=== PATIENT | female | born 1995 | race Caucasian/White ===

== ENCOUNTER → 2019-11-28 10:07 | Outpatient (BNVA) | payer OTHER, SELFPAY | PROVIDERS: Visit Provider Family Medicine | DX: Z11.59 Encounter for screening for other viral diseases (principal); Z20.828 Contact with and (suspected) exposure to other viral communicable diseases | CPT/HCPCS: 87635 ==

== ENCOUNTER → 2020-05-12 09:20 | Outpatient (BNVA) | payer OTHER, SELFPAY | PROVIDERS: Visit Provider Obstetrics & Gynecology | DX: N93.9 Abnormal uterine and vaginal bleeding, unspecified (principal); Z31.69 Encounter for other general counseling and advice on procreation; Z86.2 Personal history of diseases of the blood and blood-forming organs and certain disorders involving the immune mechanism | CPT/HCPCS: 85027 ==

== ENCOUNTER → 2021-02-18 09:39 | Outpatient (BNVA) | payer OTHER, SELFPAY | PROVIDERS: Visit Provider Nurse Practitioner Women's Health | DX: N92.6 Irregular menstruation, unspecified (principal) | CPT/HCPCS: 81025 ==

== ENCOUNTER → 2021-03-04 08:23 | Outpatient (BNVA) | payer OTHER, SELFPAY | PROVIDERS: Visit Provider Obstetrics & Gynecology | DX: O26.899 Other specified pregnancy related conditions, unspecified trimester (principal); R10.9 Unspecified abdominal pain | CPT/HCPCS: 84315; 87086 ==

== ENCOUNTER → 2021-03-11 14:00 | Outpatient (BNVA) | payer OTHER, SELFPAY | PROVIDERS: Visit Provider Obstetrics & Gynecology | DX: Z34.90 Encounter for supervision of normal pregnancy, unspecified, unspecified trimester (principal) | CPT/HCPCS: 80307; 84315; 85027; 86592; 86762; 86803; 86850; 86900; 87086; 87340 ==

== ENCOUNTER → 2021-04-06 09:39 | Outpatient (BNVA) | payer OTHER, SELFPAY | PROVIDERS: Visit Provider Obstetrics & Gynecology | DX: O09.90 Supervision of high risk pregnancy, unspecified, unspecified trimester (principal); O09.299 Supervision of pregnancy with other poor reproductive or obstetric history, unspecified trimester; O99.210 Obesity complicating pregnancy, unspecified trimester | CPT/HCPCS: 84315; 87491; 87591 ==

== ENCOUNTER → 2021-07-14 10:06 | Outpatient (BNVA) | payer OTHER, SELFPAY | PROVIDERS: PCP Nurse Practitioner Family; Visit Provider Obstetrics & Gynecology | DX: O09.90 Supervision of high risk pregnancy, unspecified, unspecified trimester (principal); Z3A.00 Weeks of gestation of pregnancy not specified | CPT/HCPCS: 82950; 84315; 85027 ==

== ENCOUNTER → 2021-07-21 08:23 | Outpatient (BNVA) | payer OTHER, SELFPAY | PROVIDERS: PCP Nurse Practitioner Family; Visit Provider Obstetrics & Gynecology | DX: O09.90 Supervision of high risk pregnancy, unspecified, unspecified trimester (principal); Z3A.00 Weeks of gestation of pregnancy not specified | CPT/HCPCS: 82951; 82952; 84315 ==

== ENCOUNTER 2021-08-19 09:30 | Outpatient (CLI) | payer OTHER, SELFPAY ==
[2021-08-19 09:38] VITALS: RESP 16
[2021-08-19 09:40] VITALS: BP 133/82; PULSE 83
[2021-08-19 09:44] VITALS: BMI 37.9
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
[2021-08-19 09:55] VITALS: BP 139/58; PULSE 82
[2021-08-19 10:10] VITALS: BP 123/70; PULSE 82
== END 2021-08-19 10:30 | disposition home or self-care (01) ==
LOC: OPOB 09:30 → OBGYN 09:31
PROVIDERS: PCP Nurse Practitioner Family; Visit Provider Obstetrics & Gynecology
DX: O26.899 Other specified pregnancy related conditions, unspecified trimester (principal); Z3A.00 Weeks of gestation of pregnancy not specified
CPT/HCPCS: 59025; 76819

== ENCOUNTER 2021-09-08 08:54 | Outpatient (CLI) | payer OTHER, SELFPAY ==
--- NOTE | 2021-09-08 09:15 | US_ITS ---
WS: [id number] OBSTETRICAL ULTRASOUND, LIMITED. HISTORY: O99.210 - Obesity complicating , growth and SABINE. COMPARISON: 08/19/2021, 02/20/2021 Single intrauterine gestation in Cephalic presentation. Cervix is difficult to visualize. Obscured by the head and late gestation. Cervical length is approximately 4.0 cm. Normal amount of amniotic fluid surrounds the fetus. Placenta: Posterior and to the RIGHT. No previa or abruption. Placenta grade 1 Heart: 164 BPM. measurements: BPD = 8.9 cm = 36w1d HC = 32.0 cm = 36w1d AC = 32.0 cm = 35w6d FL = 7.0 cm = 36w0d EFW: 2818 g. 65th Biometry is internally concordant. SABINE: 14.0 cm at the 50th percentile. AGA by ultrasound: 36w0d BLAINE by ultrasound: 10/06/2021
--- NOTE | 2021-09-08 13:36 | US_ITS ---
WS: [id number] OBSTETRICAL ULTRASOUND, LIMITED. HISTORY: O99.210 - Obesity complicating , growth and SABINE. COMPARISON: 08/19/2021, 02/20/2021 Single intrauterine gestation in Cephalic presentation. Cervix is difficult to visualize. Obscured by the head and late gestation. Cervical length is approximately 4.0 cm. Normal amount of amniotic fluid surrounds the fetus. Placenta: Posterior and to the RIGHT. No previa or abruption. Placenta grade 1 Heart: 164 BPM. measurements: BPD = 8.9 cm = 36w1d HC = 32.0 cm = 36w1d AC = 32.0 cm = 35w6d FL = 7.0 cm = 36w0d EFW: 2818 g. 65th Biometry is internally concordant. SABINE: 14.0 cm at the 50th percentile. AGA by ultrasound: 36w0d BLAINE by ultrasound: 10/06/2021 US/US OB limited [id number] IMPRESSION: 1. Single intrauterine gestation of 36w0d with an BLAINE of 10/06/2021. Appropria te growth since the first trimester ultrasound. No growth asymmetry. 2. Amniotic fluid index: 14.0 cm which is near the 50th percentile.
== END 2021-09-08 08:55 | disposition home or self-care (01) ==
LOC: RAD 08:55
PROVIDERS: PCP Nurse Practitioner Family; Visit Provider Obstetrics & Gynecology
DX: O99.210 Obesity complicating pregnancy, unspecified trimester (principal)
CPT/HCPCS: 76805; 76815; 84315; 87081

== ENCOUNTER 2021-09-14 17:18 | Outpatient (CLI) | payer OTHER, SELFPAY ==
[2021-09-14] VITALS (22 sets, daily range): BP systolic 100–135; BP diastolic 56–77; PULSE 90–125; RESP 16–18; TEMP 36.7; O2SAT 98–99; BMI 38.9
[2021-09-14 19:35] LABS: Actim Prom Negative
== END 2021-09-14 20:05 | disposition home or self-care (01) ==
LOC: OPOB 17:22 → OBGYN 17:22
PROVIDERS: PCP Nurse Practitioner Family; Visit Provider Obstetrics & Gynecology
DX: O26.899 Other specified pregnancy related conditions, unspecified trimester (principal); Z3A.00 Weeks of gestation of pregnancy not specified; N89.8 Other specified noninflammatory disorders of vagina
CPT/HCPCS: 59025; 83986; 84112; 99211

== ENCOUNTER 2021-09-29 06:11 | Inpatient (IN) | payer OTHER, SELFPAY ==
[2021-09-29] VITALS (71 sets, daily range): BP systolic 96–175; BP diastolic 53–77; PULSE 80–116; RESP 16; TEMP 36.6–36.8; O2SAT 97–100; BMI 38.9
[2021-09-29] MEDS: dextrose 5%-lactated ringers 1,000 ML 999 ML IV (06:42)
[2021-09-29 06:46] LABS: Basophils % 0.3 %; Eosinophils # 0.1 10^3/uL (0.0-0.8); Eosinophils % 1.9 %; Hematocrit 32.1 % (37.0-47.0); Hemoglobin 10.4 g/dL (11.5-15.3); Lymphocytes # 1.5 10^3/uL (0.8-4.8); Lymphocytes % 21.7 %; Mean Corpuscular HGB Conc 32.4 g/dL (30.0-36.0); Mean Corpuscular Hemoglobin 28.2 pg (28.0-34.0); Mean Platelet Volume 11.9 fL (7.4-10.4); Monocytes # 0.4 10^3/uL (0.2-0.9); Monocytes % 5.3 %; Neutrophils # 4.77 10^3/uL (1.8-7.7); Neutrophils % 70.4 %; Nucleated Red Blood Cells % 0 %; Platelet Count 136 10^3/cmm (130-400); Red Blood Count 3.69 10^6/uL (4.1-5.3); Red Cell Distribution Width 13.6 % (12.1-15.1); White Blood Count 6.8 10^3/uL (4.0-10.0)
[2021-09-29] MEDS: oxytocin 30 UNIT/500 ML BAG IV (07:21)
--- NOTE | 2021-09-29 09:15 | P.HPUD_ITS ---
Labor & Delivery H&P Update Date of Procedure: September 29, 2021 Date H&P Performed: 09/28/21 H&P update information: I have reviewed H&P completed within last 30 days, I have examined patient prior to procedure, No changes to prior documentation and H&P is in [facility] [place] on date indicated Admission Diagnosis: Preop diagnosis: IUP
[2021-09-29] MEDS: lactated ringers 1,000 ML 999 ML IV ×2 (12:02→12:04)
--- NOTE | 2021-09-29 12:39 | ANES.PREANE2 ---
Pre-Anesthetic Assessment Height/Weight: Height 1.6 m Weight 99.79 kg Temp Pulse Resp BP Pulse Ox O2 Del Method 98.2 F 102 H 16 113/61 99 09/29/21 07:28 09/29/21 12:29 09/29/21 06:27 09/29/21 12:29 09/29/21 12:02 09/29/21 08:00 Preop Diagnosis: IUP epidural Familial anesthetic complications: None Was Beta Milagros taken within 24 hours: N/A Was Clonidine taken within 24 hours: N/A Social No alcohol and No tobacco Exam alert, oriented x 3, clear to auscultation bilaterally and regular rate & rhythm Airway Mallampati: Class II Dentition: full Metabolic Morbid Obesity Anesthetic Plan ASA status: 2 Other: epidural Risk of > 500 ml blood loss (7ml/kg in children): No Medications/Allergies Home Medications Medication Instructions Recorded Confirmed Last Taken Type prenat.vits,estrada,qpb-[id number] 1 tab PO DAILY 02/18/21 09/29/21 09/28/21 History ferrous sulfate 325 mg (65 mg 325 mg PO DAILY #90 tabs 07/27/21 09/29/21 09/28/21 Rx iron) tablet,delayed release Allergies Allergy/AdvReac Type Severity Reaction Status Date / Time No Known Allergies Allergy Verified 09/29/21 06:51 Current Medications Generic Name Dose Route Start Last Admin Trade Name Freq PRN Reason Stop Dose Admin Oxytocin 30 unit in 500 mls @ 1 mls/hr 09/29/21 06:30 09/29/21 10:00 Pitocin IV 19 milliunit/min .Q24H JOJO 19 mls/hr Titration Protocol 1 MILLIUNIT/MIN Dextrose/Lactated Ringer's 1,000 mls @ 125 mls/hr 09/29/21 06:30 09/29/21 06:42 Dextrose 5%-Lactated Ringers IV 999 mls/hr .Q8H JOJO Administration Lactated Ringer's 1,000 mls @ 999 mls/hr 09/29/21 10:52 09/29/21 12:04 Lactated Ringers IV 999 mls/hr .Q1H1M PRN Administration See label comments PFSH Anesthesia Medical History No pertinent past medical history Denies diabetes, asthma, hypertension, seizures, DVT/PE PCP: RNA Clements Surgical History No pertinent past surgical history Family History Grandmother Stroke maternal Diabetes maternal and paternal Heart disease Maternal Uterine cancer Paternal---dx age 80 Mother Thyroid disease Denies family history of Colon cancer Ovarian cancer Hypercholesteremia Breast cancer Hypertension Female Reproductive History : 2 Data Anesthesia : 09/29/21 06:31 Short CBC 09/29/21 Range/Units 06:31 WBC 6.8 (4.0-10.0) 10^3/uL Hgb 10.4 L (11.5-15.3) g/dL Hct 32.1 L (37.0-47.0) % MCV 87.0 (81-99) fl Plt Count 136 (130-400) 10^3/cmm Neut % (Auto) 70.4 % Neut # (Auto) 4.77 (1.8-7.7) 10^3/uL Blood Bank 09/29/21 06:31 Blood Type O Positive Rho(D) Type Positive Antibody Screen Negative Cardiac Studies: No Data to Display
--- NOTE | 2021-09-29 12:40 | ANES.PROC ---
Anesthesia Procedures Procedure/Date: 09/29/21 Epidural: Time Out Performed: Yes Consents Signed: Procedure Consent Consent: requested by attending/covering physician, from patient, risks and benefits reviewed and patient agrees to proceed Lumbar Level: L3-L4 Epidural position: sitting Epidural procedure: sterile prep of area, 1% lidocaine to numb the area, 18 g needle, negative for paresthesia passed, neg for paresthesia, test dose given, 1.5% xylocaine 1:200k epi (5 cc (divided dose)), 0.2% Ropivacaine bolus ml (5), placed PCEA, no systemic response, sterile dressing applied, L.U.D. no apparent complications and 0.2% Ropiavacaine @ mls/hr (13) Additional Comments: HARMONY at 5.5 cm. threaded to 12 cm, Patient reported pain free contraction following bolus.
[2021-09-29] MEDS: dextrose 5%-lactated ringers 1,000 ML 125 ML IV (17:00)
--- NOTE | 2021-09-29 18:20 | P.PCNOB_ITS ---
Delivery Note: Date of delivery: September 29, 2021 - PRE-DELIVERY DIAGNOSIS: 26 yr at 39w0d GBS negative Anemia on iron Elective induction POST-DELIVERY DIAGNOSIS: Vaginal delivery on 09/29/2021 PROCEDURE: Vaginal delivery on 09/29/2021 ANESTHESIA: Epidural anesthesia DELIVERING PHYSICIAN: Meagan Kent FACOG PRE-DELIVERY COURSE: Ms. Triana is a 26-year-old 2 para 1-0-0-1 at 39 weeks and 0 days who presented to labor and delivery at 6 AM on 09/29/2021 for elective induction of labor. On evaluation her cervix was noted to be 3 cm 60% and -3 station cephalic. tracing was category 1 and she had no contractions. GBS was noted to be negative. Vital signs are within normal limits. Induction was started with Pitocin titrated to a maximum of 20 mIU. With this she started to get a little uncomfortable and at age 11:15 AM she was noted to be 4 cm 60% and -3 station. She requested an epidural which was placed and she was comfortable. Artificial rupture of membranes was performed at 2 PM with clear fluid at which point she was 4 to 5 cm 60% and -2 station. She made cervical change after this and was fully dilated at 5:39 PM and was feeling a lot of pressure and was set up in lithotomy position ready to push. tracing was overall reassuring with occasional variables and mainly early decelerations. DELIVERY NOTE: She was set up in lithotomy position and was pushing effectively. She was noted to be +3 station and continued pushing well. The head delivered in BETZY position, no nuchal cord was present. The shoulders and rest of the body followed with her next push. The baby's mouth and nose were suctioned and the baby was placed on the mother's belly. Once cord pulsations stopped the cord was clamped and cut. The placenta delivered spontaneously intact with membranes and was discarded. The fundus was noted to be firm and well contracted. Exam showed no sign of uterine inversion. The vagina and cervix were inspected and no cervical or sulcal lacerations were noted. The perineum was noted to be intact Baby boy, Jeffrey Davis born at 5:58 PM with 8/9, weighing 6 pounds 13 ounces, 3095 long. Placenta was delivered spontaneously intact with membranes. Cotyledons were intact , centrally inserted umbilical cord with 3 vessels noted. Estimated blood loss 250 mL. Complications-none, both baby and mother were left to recover in a stable condition. This documentation was created by [employer] professor of environmental studies software (known for inherent professor of environmental studies error). Every effort was made to assure accuracy of professor of environmental studies. Any obvious errors or omissions should be clarified with the author of the document. History History History 2 Term 1 0 Miscarriages/Ectopic 0 Living Children 1 Coding Level of Care Code Acute Sanitation Director for [employer] Madiha
[2021-09-29] MEDS: ibuprofen 800 mg tablet PO (21:13)
[2021-09-29] MEDS: benzocaine-menthol 78 gm Canister 1 SPRAY TOPICAL (22:03)
[2021-09-29] MEDS: lanolin oint 7 gm 1 APPLIC TOPICAL (22:03)
[2021-09-29] MEDS: HYDROcodone-acetaminophen 5-325 mg Tablet PO (23:42)
[2021-09-30 00:26] VITALS: BP 113/75; PULSE 73; TEMP 36.7; O2SAT 98
[2021-09-30 02:45] VITALS: BP 94/60; PULSE 77; RESP 16; TEMP 36.6; O2SAT 98
[2021-09-30 04:30] VITALS: BP 97/52; PULSE 68; TEMP 36.5; O2SAT 99
[2021-09-30 06:30] LABS: Hematocrit 31.3 % (37.0-47.0); Hemoglobin 10.1 g/dL (11.5-15.3); Mean Corpuscular HGB Conc 32.3 g/dL (30.0-36.0); Mean Corpuscular Hemoglobin 28.2 pg (28.0-34.0); Mean Corpuscular Volume 87.4 fl (81-99); Mean Platelet Volume 11.9 fL (7.4-10.4); Platelet Count 155 10^3/cmm (130-400); Red Blood Count 3.58 10^6/uL (4.1-5.3); Red Cell Distribution Width 13.6 % (12.1-15.1); White Blood Count 9.4 10^3/uL (4.0-10.0)
--- NOTE | 2021-09-30 07:24 | ANE.PACU2 ---
Inpatient post-anesthesia follow up: Airway intact: Yes Vital signs: Temperature 97.7 F Pulse Rate 68 Respiratory Rate 16 Blood Pressure 97/52 Pulse Oximetry 99 Oxygen Delivery Me thod Room Air Oxygen Flow Rate Fraction of Inspir ed Oxygen Hydration adequate: Yes Nausea and vomiting: No Pain level: 2 Mental status: Baseline
[2021-09-30] MEDS: ibuprofen 800 mg tablet PO ×2 (08:21→14:10)
[2021-09-30] MEDS: docusate sodium 100 mg Capsule PO (08:21)
[2021-09-30] MEDS: prenatal vitamin Capsule 1 CAP PO (08:21)
[2021-09-30 08:43] VITALS: BP 111/75; PULSE 78; RESP 15; TEMP 36.7; O2SAT 97
--- NOTE | 2021-09-30 09:14 | P.DS_ITS ---
Discharge Providers VIDEO TAPE DUPLICATOR Date of Admission: 09/29/21 06:11 Date of Discharge: 09/30/21 Attending Provider at Admission: Meagan Calderon MD Attending Provider at Discharge: Meagan Calderon MD PRE-DELIVERY DIAGNOSIS: 26 yr at 39w0d GBS negative Anemia on iron Elective induction POST-DELIVERY DIAGNOSIS: Vaginal delivery on 09/29/2021 PROCEDURE: Vaginal delivery on 09/29/2021 ANESTHESIA: Epidural anesthesia DELIVERING PHYSICIAN: Meagan Kent FACOG PRE-DELIVERY COURSE: Ms. Triana is a 26-year-old 2 para 1-0-0-1 at 39 weeks and 0 days who presented to labor and delivery at 6 AM on 09/29/2021 for elective induction of labor. On evaluation her cervix was noted to be 3 cm 60% and -3 station cephalic. tracing was category 1 and she had no contractions. GBS was noted to be negative. Vital signs are within normal limits. Induction was started with Pitocin titrated to a maximum of 20 mIU. With this she started to get a little uncomfortable and at age 11:15 AM she was noted to be 4 cm 60% and -3 station. She requested an epidural which was placed and she was comfortable. Artificial rupture of membranes was performed at 2 PM with clear fluid at which point she was 4 to 5 cm 60% and -2 station. She made cervical change after this and was fully dilated at 5:39 PM and was feeling a lot of pressure and was set up in lithotomy position ready to push. tracing was overall reassuring with occasional variables and mainly early decelerations. DELIVERY NOTE: She was set up in lithotomy position and was pushing effectively. She was noted to be +3 station and continued pushing well. The head delivered in BETZY position, no nuchal cord was present. The shoulders and rest of the body followed with her next push. The baby's mouth and nose were suctioned and the baby was placed on the mother's belly. Once cord pulsations stopped the cord was clamped and cut. The placenta delivered spontaneously intact with membranes and was discarded. The fundus was noted to be firm and well contracted. Exam showed no sign of uterine inversion. The vagina and cervix were inspected and no cervical or sulcal lacerations were noted. The perineum was noted to be intact Baby boy, Jeffrey Davis born at 5:58 PM with 8/9, weighing 6 pounds 13 ounces, 3095 long. Placenta was delivered spontaneously intact with membranes. Cotyledons were intact , centrally inserted umbilical cord with 3 vessels noted. Estimated blood loss 250 mL. Complications-none, both baby and mother were left to recover in a stable condition. HOSPITAL COURSE: She underwent an uncomplicated vaginal delivery on 09/29/2021. She did well on day 0 and was ambulating well, tolerating regular diet, voiding freely, passing flatus. She was breast-feeding without difficulty and bonding well with her son. Pain was well-controlled with by mouth pain medication. She denied nausea, vomiting, fever, chills, shortness of breath, leg pain. She had moderate vaginal bleeding. On day # 1 she continued to do well with stable vital signs and stable hemoglobin at 10.1. She was discharged home on day 1 in a stable condition, as she desired early discharge. Warning signs for endometritis, mastitis, DVT/PE were reviewed with her. Post delivery activity restrictions were also reviewed with her at all her questions were answered to her satisfaction. Is considering the Mirena for contraception but is not quite sure EXAM AT DISCHARGE: Gen.: No acute distress Heart: S1-S2 heard, regular rate and rhythm Lungs: Clear to auscultation bilaterally Abdomen: Soft, fundus firm below umbilicus, Legs: No calf tenderness, +1 bilateral pitting pedal edema. CONDITION AT DISCHARGE: Stable This documentation was created by [employer] editor managing director software (known for inherent editor managing director error). Every effort was made to assure accuracy of editor managing director. Any obvious errors or omissions should be clarified with the author of the document. Primary Care Provider: RAN Clements Reason for Visit Reason for Visit: IOL Information Peripartum Data: Infant Delivery Method: Vaginal Physical Exam Urinary Catheter Management: Conner Latex: Cath Placed During This Visit: yes Urinary Catheter Date of Insertion: 09/29/21 Urinary Catheter Time of Insertion: 12:30 History History History 2 Term 1 0 Miscarriages/Ectopic 0 Living Children 1 Discharge Data Studies Completed and Pending Laboratory Results WBC 9.4 10^3/uL (4.0-10.0) 09/30/21 06:14 RBC 3.58 10^6/uL (4.1-5.3) L 09/30/21 06:14 Hgb 10.1 g/dL (11.5-15.3) L 09/30/21 06:14 Hct 31.3 % (37.0-47.0) L 09/30/21 06:14 MCV 87.4 fl (81-99) 09/30/21 06:14 MCH 28.2 pg (28.0-34.0) 09/30/21 06:14 MCHC 32.3 g/dL (30.0-36.0) 09/30/21 06:14 RDW 13.6 % (12.1-15.1) 09/30/21 06:14 Plt Count 155 10^3/cmm (130-400) 09/30/21 06:14 MPV 11.9 fL (7.4-10.4) H 09/30/21 06:14 Neut % (Auto) 70.4 % 09/29/21 06:31 Lymph % (Auto) 21.7 % 09/29/21 06:31 [place] % (Auto) 5.3 % 09/29/21 06:31 Eos % (Auto) 1.9 % 09/29/21 06:31 Baso % (Auto) 0.3 % 09/29/21 06:31 Neut # (Auto) 4.77 10^3/uL (1.8-7.7) 09/29/21 06:31 Lymph # (Auto) 1.5 10^3/uL (0.8-4.8) 09/29/21 06:31 [place] # (Auto) 0.4 10^3/uL (0.2-0.9) 09/29/21 06:31 Eos # (Auto) 0.1 10^3/uL (0.0-0.8) 09/29/21 06:31 Baso # (Auto) 0.0 10^3/uL (0.0-0.1) 09/29/21 06:31 Nucleated RBC % (auto) 0 % 09/29/21 06:31 Nucleated RBCs # 0.0 /100WBC 09/29/21 06:31 Blood Type O Positive 09/29/21 06:31 Rho(D) Type Positive 09/29/21 06:31 Antibody Screen Negative 09/29/21 06:31 Vitals Last Vital Signs Temp 98.1 F 09/30/21 08:43 Pulse 78 09/30/21 08:43 Resp 15 09/30/21 08:43 BP 111/75 09/30/21 08:43 Pulse Ox 97 09/30/21 08:43 O2 Del Method 09/30/21 08:43 Discharge Plan Discharge Patient Disposition: Home Condition: Stable Prescriptions: New ibuprofen 800 mg tablet 800 mg PO Q8H Qty: 30 0RF docusate sodium 100 mg capsule 100 mg PO BID PRN (Reason: constipation) Qty: 30 0RF Continued prenat.vits,estrada,[id number] Tablet 1 tab PO DAILY Discontinued ferrous sulfate 325 mg (65 mg iron) tablet,delayed release (DR/EC) 325 mg PO DAILY Qty: 90 1RF Discharge Orders: Discharge Order (Routine); Ordered 09/30/21 Ordered By: Meagan Calderon Discharge Diet: Regular Discharge Activity: Limit activity as instructed Patient Instructions: Depression (DC), Bleeding (DC), Preeclampsia and Eclampsia After Delivery (GEN), OB Discharge Report, OB Food/Drug Interaction Guide, OB Care at Home, Opioid Safety, OB Home Care, OB Vaginal Deliveries - [facility], Abnormal Bleeding Activity Restrictions/Additional Instructions: No heavy lifting for 6 weeks, pelvic rest for 6 weeks Follow-up with Mari Ahmadi for 6-week visit Emergency room precautions reviewed Discharge Attestations VIDEO TAPE DUPLICATOR Time Spent in Discharge Care*: greater than 30 min Coding Level of Care Code Acute Auto Suspension And Steering Mechanic for Ortiz Cleary
[2021-09-30 19:50] VITALS: BP 113/76; PULSE 87; RESP 15; TEMP 36.6; O2SAT 98
== END 2021-09-30 20:01 | disposition home or self-care (01) | DRG 807 ==
LOC: OPOB 06:16 → OBGYN 06:16
PROVIDERS: Admitting Provider Obstetrics & Gynecology; PCP Nurse Practitioner Family; Visit Provider Obstetrics & Gynecology
DX: O99.02 Anemia complicating childbirth (principal); Z37.0 Single live birth; D64.9 Anemia, unspecified; O99.213 Obesity complicating pregnancy, third trimester; E66.01 Morbid (severe) obesity due to excess calories; Z3A.39 39 weeks gestation of pregnancy; Z87.59 Personal history of other complications of pregnancy, childbirth and the puerperium
CPT/HCPCS: 36415; 51702; 59409; 85025; 85027; 86850; 86900; J2795

== ENCOUNTER → 2021-11-01 10:13 | Outpatient (BNVA) | payer OTHER, SELFPAY | PROVIDERS: PCP Nurse Practitioner Family; Visit Provider Registered Nurse Neonatal Intensive Care | DX: N39.0 Urinary tract infection, site not specified (principal); R30.0 Dysuria | CPT/HCPCS: 81000; 87086 ==

== ENCOUNTER → 2023-04-20 14:00 | Outpatient (BNVA) | payer OTHER, SELFPAY | PROVIDERS: PCP Nurse Practitioner Family; Visit Provider Obstetrics & Gynecology | DX: Z12.4 Encounter for screening for malignant neoplasm of cervix (principal) | CPT/HCPCS: 87624 ==

== ENCOUNTER → 2024-01-14 11:05 | Outpatient (BNVA) | payer OTHER, SELFPAY | PROVIDERS: PCP Nurse Practitioner Family; Visit Provider Nurse Practitioner | DX: J02.9 Acute pharyngitis, unspecified (principal); J02.0 Streptococcal pharyngitis | CPT/HCPCS: 87880 ==

== ENCOUNTER → 2024-05-14 15:59 | Outpatient (BNVA) | payer OTHER, SELFPAY | PROVIDERS: PCP Nurse Practitioner Family; Visit Provider Obstetrics & Gynecology | DX: Z01.419 Encounter for gynecological examination (general) (routine) without abnormal findings (principal); R30.0 Dysuria | CPT/HCPCS: 81000; 87624 ==

== ENCOUNTER → 2024-11-15 08:45 | Outpatient (BNVA) | payer OTHER, SELFPAY | PROVIDERS: PCP Nurse Practitioner Family; Visit Provider Obstetrics & Gynecology | DX: N92.0 Excessive and frequent menstruation with regular cycle (principal) | CPT/HCPCS: 82306; 85025 ==

== ENCOUNTER 2025-01-01 10:56 | Outpatient (CLI) | payer OTHER, SELFPAY ==
--- NOTE | 2025-01-01 10:58 | XR_ITS ---
WS: [id number] XR chest 2V* [id number] REASON FOR EXAM: pain on inspiration FINDINGS: The heart and the mediastinum are within normal limits. Calcified granulomatous disease bilaterally. No acute pulmonary parenchymal or pleural abnormality is identified. Minimal dextroscoliosis of the thoracic spine. XR/XR chest 2V* [id number] IMPRESSION: No significant chest abnormality.
== END 2025-01-01 10:57 | disposition home or self-care (01) ==
LOC: RAD 10:56
PROVIDERS: PCP Nurse Practitioner Family; Visit Provider Nurse Practitioner
DX: J98.4 Other disorders of lung (principal); R07.1 Chest pain on breathing
CPT/HCPCS: 71046